=== PATIENT | male | born 1990 | race Caucasian/White ===

== ENCOUNTER 2018-05-25 02:08 | Emergency (ER) | payer MEDICAID ==
[2018-05-25] MEDS: ACETAMINOPHEN 325 MG TAB PO (02:38)
[2018-05-25] MEDS: KETOROLAC 60 MG INJ IM (02:55)
== END 2018-05-25 03:34 | disposition home or self-care (01) ==
LOC: FTE 02:08
DX: R07.89 Other chest pain (principal)
CPT/HCPCS: 71045; 93005; 96372; 99284-25